=== PATIENT | male | born 1940 | race African-American/Black ===

== ENCOUNTER 2021-06-01 19:31 | Inpatient (IN) ==
[2021-06-01] MEDS ORDERED: ONDANSETRON 4 MG/2 ML VIAL IV ONE (20:21)
[2021-06-01] MEDS ORDERED: SODIUM CHLORIDE 0.9% 1,000 ML IV STA (20:21)
[2021-06-01 20:59] LABS: Basophils % 0.2 % (0.0-0.8); Eosinophils % 0.6 % (0.00-10.9); Hematocrit 31.3 VOL% (42.0-52.0); Immature Granulocytes % 0.4 %; Immature Granulocytes Absolute 0.02 #; Lymphocytes # 0.9 10*3/uL (1.4-4.0); Lymphocytes % 19.4 % (21.2-54.2); Mean Corpuscular HGB Conc 31.9 GM/DL (32-36); Mean Corpuscular Volume 81.9 FL (87-102); Mean Platelet Volume 11.9 FL (9.6-12.0); Neutrophils % 67.4 % (38.7-73.9); Platelet Count 206 T/CUMM (130-400); Red Blood Count 3.82 MC/CUMM (3.8-5.5); Red Cell Distribution Width 16.2 % (9.3-17.3); White Blood Count 4.8 T/CUMM (4-12)
[2021-06-01 21:21] LABS: Albumin 3.3 G/DL (3.4-5.0); Bilirubin,Total 0.9 MG/DL (0.20-1.00); Calcium 8.7 MG/DL (8.5-10.1); Osmolality,Calculated 272.5 MOS/KG (273-304); Potassium 4.4 MMOL/L (3.5-5.1)
[2021-06-01 22:09] LABS: Bacteria,Urine Occasional /HPF (Few); Bilirubin,Urine Negative (Negative); Blood, Urine Small mg/dL (Negative); Glucose,Urine (UA) Negative (Negative); Hyaline Casts,Urine 31 /LPF (0-3); Ketones,Urine Negative (Negative); Mucus,Urine Occasional /LPF (Occasional); Nitrite,Urine Negative (Negative); Protein,Urine Trace mg/dL (Negative); RBC,Urine 15-20 /HPF (0-4); Squamous Epithelial Cell,Urine Occasional /HPF (0-10); Urine Appearance Clear (Clear); Urine Color Yellow (Yellow); Urine Urobilinogen 0.2 eU/dL (<2.0)
[2021-06-01] MEDS ORDERED: PIPERACILLIN/TAZOBACTAM 3,375 MG in SODIUM CHLORIDE 0.9% 100 ML IV STA (22:28)
[2021-06-02] MEDS ORDERED: ACETAMINOPHEN 325 MG TABLET PO PRN (00:08)
[2021-06-02] MEDS ORDERED: HYDROmorphone 1 MG/1 ML SYRINGE IV PRN (00:08)
[2021-06-02] MEDS ORDERED: hydrALAZINE 20 MG/1 ML VIAL IV PRN (00:08)
[2021-06-02] MEDS ORDERED: GLUCAGON 1 MG VIAL IM PRN (00:08)
[2021-06-02] MEDS ORDERED: ONDANSETRON 4 MG/2 ML VIAL IV PRN (00:08)
[2021-06-02] MEDS ORDERED: DEXTROSE 10% 250 ML BAG IV PRN (00:22)
[2021-06-02 02:40] LABS: Hepatitis B Core IgM Quant 0.14 Index; Hepatitis B Surface Ag Quant < 0.10 Index; Hepatitis B Surface Ag Result Non-Reactive (NonReactive); Hepatitis C Virus Ab Quant 0.22 Index; Hepatitis C Virus Ab Result Non-Reactive (NonReactive)
[2021-06-02 06:00] LABS: Basophils % 0.2 % (0.0-0.8); Eosinophils % 0.2 % (0.00-10.9); Hematocrit 28.1 VOL% (42.0-52.0); Immature Granulocytes % 0.9 %; Immature Granulocytes Absolute 0.04 #; Lymphocytes # 0.8 10*3/uL (1.4-4.0); Lymphocytes % 17.2 % (21.2-54.2); Mean Platelet Volume 10.9 FL (9.6-12.0); Monocytes % 10.8 % (1.7-12.7); NRBC # 0.02 10*3/uL; Neutrophils % 70.7 % (38.7-73.9); Platelet Count 189 T/CUMM (130-400); Red Blood Count 3.47 MC/CUMM (3.8-5.5); White Blood Count 4.4 T/CUMM (4-12)
[2021-06-02 06:01] LABS: INR 1.4; PT Patient Result 14.8 SECS (10.5-12.0)
[2021-06-02] MEDS: PIPERACILLIN/TAZOBACTAM 3,375 MG in SODIUM CHLORIDE 0.9% 100 ML IV SCH ×3 (06:18→21:42)
[2021-06-02 06:22] LABS: Albumin 2.8 G/DL (3.4-5.0); Bilirubin,Total 1.7 MG/DL (0.20-1.00); Calcium 8.6 MG/DL (8.5-10.1); Osmolality,Calculated 275.4 MOS/KG (273-304); Potassium 4.5 MMOL/L (3.5-5.1); Risk Ratio 3.42; Thyroid Stimulating Hormone 4.4 uIU/ml (0.358-3.74); Total Protein 8.3 G/DL (6.4-8.2); VLDL Cholesterol 19.8 MG/DL
[2021-06-02] MEDS: PANTOPRAZOLE 40 MG VIAL IV SCH (09:56)
[2021-06-02] MEDS: FUROSEMIDE 40 MG/4 ML VIAL IV SCH (17:48)
[2021-06-02] MEDS: METOPROLOL TARTRATE 25 MG TABLET PO SCH (21:42)
[2021-06-02] MEDS: ENOXAPARIN 40 MG/0.4 ML SYRINGE SUBCUT SCH (22:01)
[2021-06-02] MEDS ORDERED: MELATONIN 3 MG TABLET PO PRN (22:29)
[2021-06-02] MEDS: ZALEPLON 5 MG CAPSULE PO PRN (23:52)
[2021-06-03] MEDS: PIPERACILLIN/TAZOBACTAM 3,375 MG in SODIUM CHLORIDE 0.9% 100 ML IV SCH ×3 (05:29→22:45)
[2021-06-03 07:57] LABS: Basophils % 0.4 % (0.0-0.8); Eosinophils % 0.2 % (0.00-10.9); Hematocrit 27.7 VOL% (42.0-52.0); Hemoglobin 8.9 GM/DL (14.0-18.0); Immature Granulocytes % 0.6 %; Immature Granulocytes Absolute 0.03 #; Lymphocytes # 0.6 10*3/uL (1.4-4.0); Lymphocytes % 12.4 % (21.2-54.2); Mean Corpuscular HGB Conc 32.1 GM/DL (32-36); Mean Corpuscular Volume 81.2 FL (87-102); Mean Platelet Volume 10.9 FL (9.6-12.0); Monocytes % 11.2 % (1.7-12.7); NRBC # 0.03 10*3/uL; Neutrophils % 75.2 % (38.7-73.9); Platelet Count 213 T/CUMM (130-400); Red Blood Count 3.41 MC/CUMM (3.8-5.5); Red Cell Distribution Width 16.5 % (9.3-17.3); White Blood Count 5.2 T/CUMM (4-12)
[2021-06-03 08:13] LABS: Bilirubin,Total 1.2 MG/DL (0.20-1.00); Calcium 8.8 MG/DL (8.5-10.1); Osmolality,Calculated 279.4 MOS/KG (273-304); Potassium 4.5 MMOL/L (3.5-5.1); Total Protein 8.4 G/DL (6.4-8.2)
[2021-06-03] MEDS: FUROSEMIDE 40 MG/4 ML VIAL IV SCH (08:36)
[2021-06-03] MEDS: PANTOPRAZOLE 40 MG VIAL IV SCH (08:39)
[2021-06-03] MEDS: METOPROLOL TARTRATE 25 MG TABLET PO SCH ×2 (08:40→22:41)
[2021-06-03] MEDS: POLYETHYLENE GLYCOL POWDER 17 GM PACK PO SCH (09:28)
[2021-06-03] MEDS: DOCUSATE SODIUM 100 MG CAPSULE PO SCH ×2 (09:29→22:41)
[2021-06-03] MEDS ORDERED: HALOPERIDOL 1 MG TABLET PO ONE (11:00)
[2021-06-03 17:29] LABS: Lymphocytes,Pleural Fluid 95 %; Neutrophils,Pleural Fluid 5 %
[2021-06-03 17:30] LABS: RBC,Pleural Fluid 11641 T/CUMM
[2021-06-03] MEDS: ZALEPLON 5 MG CAPSULE PO PRN (22:36)
[2021-06-03] MEDS: ENOXAPARIN 40 MG/0.4 ML SYRINGE SUBCUT SCH (22:41)
[2021-06-04] MEDS: PIPERACILLIN/TAZOBACTAM 3,375 MG in SODIUM CHLORIDE 0.9% 100 ML IV SCH (05:09)
[2021-06-04] MEDS ORDERED: FUROSEMIDE 40 MG/4 ML VIAL IV SCH (09:00)
[2021-06-04] MEDS: DOCUSATE SODIUM 100 MG CAPSULE PO SCH (10:13)
[2021-06-04] MEDS: POLYETHYLENE GLYCOL POWDER 17 GM PACK PO SCH (10:14)
[2021-06-04] MEDS: METOPROLOL TARTRATE 25 MG TABLET PO SCH (10:14)
[2021-06-04] MEDS: PANTOPRAZOLE 40 MG VIAL IV SCH (10:17)
[2021-06-04 12:03] VITALS: BP 101/62
[2021-06-04 15:02] LABS: CEA, Pleural Fluid 0.6 ng/mL
== END 2021-06-04 18:59 | disposition home health service (06) | DRG 432 ==
LOC: N.ED 19:31 → N.EDINP 06-02 00:08 → N.TELEN 06-02 03:32
PROVIDERS: ADMIT Hospitalist; ATTEND Hospitalist
PROC: IRTHORA (2021-06-03 14:35)

== ENCOUNTER 2021-07-21 13:23 | Inpatient (IN) ==
[2021-07-21] MEDS ORDERED: SODIUM CHLORIDE 0.9% 1,000 ML IV STA (14:10)
[2021-07-21 15:09] LABS: Albumin 2.7 G/DL (3.4-5.0); Bilirubin,Total 1.4 MG/DL (0.20-1.00); Calcium 9.3 MG/DL (8.5-10.1); Osmolality,Calculated 309.6 MOS/KG (273-304); Potassium 3.9 MMOL/L (3.5-5.1); Thyroid Stimulating Hormone 3.9 uIU/ml (0.358-3.74); Total Protein 8.5 G/DL (6.4-8.2)
[2021-07-21 15:21] LABS: Basophils % 0.2 % (0.0-0.8); Eosinophils % 0.7 % (0.00-10.9); Hematocrit 46.2 VOL% (42.0-52.0); Immature Granulocytes % 0.5 %; Immature Granulocytes Absolute 0.02 #; Lymphocytes # 0.8 10*3/uL (1.4-4.0); Lymphocytes % 20.5 % (21.2-54.2); Mean Corpuscular HGB Conc 30.3 GM/DL (32-36); Mean Corpuscular Volume 87.8 FL (87-102); Monocytes # 0.3 10*3/uL (0.11-0.8); Monocytes % 7.3 % (1.7-12.7); Neutrophils % 70.8 % (38.7-73.9); Platelet Count 149 T/CUMM (130-400); Red Blood Count 5.26 MC/CUMM (3.8-5.5); White Blood Count 4.1 T/CUMM (4-12)
[2021-07-21 15:43] LABS: PT Patient Result 51.8 SECS (10.5-12.0); Partial Thromboplastin Time 51.6 SECS (23.8-32.1)
[2021-07-21 15:45] LABS: INR 5.3
[2021-07-21] MEDS ORDERED: ONDANSETRON 4 MG/2 ML VIAL IV PRN (17:43)
[2021-07-21] MEDS ORDERED: GLUCAGON 1 MG VIAL IM PRN (17:43)
[2021-07-21] MEDS ORDERED: DEXTROSE 10% 250 ML BAG IV PRN (18:15)
[2021-07-21] MEDS ORDERED: POLYETHYLENE GLYCOL POWDER 17 GM PACK PO PRN (18:17)
[2021-07-21] MEDS ORDERED: CYPROHEPTADINE 4 MG TABLET PO PRN (18:17)
[2021-07-21] MEDS: DEXTROSE 5% 1,000 ML IV SCH (19:00)
[2021-07-22 03:53] LABS: Bacteria,Urine Occasional /HPF (Few); Mucus,Urine Occasional /LPF (Occasional); RBC,Urine 50 /HPF (0-4); Squamous Epithelial Cell,Urine Occasional /HPF (0-10)
[2021-07-22 03:54] LABS: Urine Appearance Slightly Hazy (Clear); Urine Color Yellow (Yellow); Urine pH 6.5 (4.5-8.0)
[2021-07-22 03:55] LABS: Bilirubin,Urine Negative (Negative); Blood, Urine Moderate mg/dL (Negative); Glucose,Urine (UA) Negative (Negative); Ketones,Urine Trace mg/dL (Negative); Nitrite,Urine Negative (Negative); Protein,Urine Trace mg/dL (Negative); Urine Specific Gravity 1.015 (1.001-1.035); Urine Urobilinogen 0.2 eU/dL (<2.0)
[2021-07-22 05:48] LABS: Immature Granulocytes % 0.3 %; Immature Granulocytes Absolute 0.01 #; Monocytes # 0.3 10*3/uL (0.11-0.8)
[2021-07-22 06:05] LABS: Albumin 2.5 G/DL (3.4-5.0); Bilirubin,Total 1.2 MG/DL (0.20-1.00); Osmolality,Calculated 307.9 MOS/KG (273-304); Risk Ratio 6.22; Total Protein 7.6 G/DL (6.4-8.2); VLDL Cholesterol 29.6 MG/DL
[2021-07-22 06:30] LABS: Basophils % 0.3 % (0.0-0.8); Eosinophils % 1.1 % (0.00-10.9); Hematocrit 48.4 VOL% (42.0-52.0); Lymphocytes # 0.9 10*3/uL (1.4-4.0); Lymphocytes % 23.3 % (21.2-54.2); Mean Corpuscular Volume 88.6 FL (87-102); Monocytes % 7.2 % (1.7-12.7); Neutrophils % 67.8 % (38.7-73.9); Platelet Count 150 T/CUMM (130-400); Red Blood Count 5.46 MC/CUMM (3.8-5.5); Red Cell Distribution Width 21.4 % (9.3-17.3); White Blood Count 3.7 T/CUMM (4-12)
[2021-07-22 06:32] LABS: Hemoglobin 14.5 GM/DL (14.0-18.0)
[2021-07-22 06:37] LABS: INR 4.6
[2021-07-22] MEDS: DEXTROSE 5% 1,000 ML IV SCH ×3 (08:28→21:25)
[2021-07-22] MEDS: cefTRIAXone 1,000 MG in SODIUM CHLORIDE 0.9% 100 ML IV SCH (08:44)
[2021-07-22] MEDS: PANTOPRAZOLE 40 MG VIAL IV SCH (08:49)
[2021-07-22] MEDS: TAMSULOSIN 0.4 MG CAPSULE PO SCH (08:49)
[2021-07-22] MEDS: MENTHOL/ZINC OXIDE OINT 71 GM JAR TOP SCH ×2 (15:26→21:20)
[2021-07-23 05:49] LABS: Basophils % 0.3 % (0.0-0.8); Eosinophils # 0.1 10*3/uL (0.0-0.87); Eosinophils % 1.9 % (0.00-10.9); Hematocrit 44.2 VOL% (42.0-52.0); Hemoglobin 13.4 GM/DL (14.0-18.0); Immature Granulocytes % 0.3 %; Immature Granulocytes Absolute 0.01 #; Lymphocytes # 0.8 10*3/uL (1.4-4.0); Lymphocytes % 24.4 % (21.2-54.2); Mean Corpuscular HGB Conc 30.3 GM/DL (32-36); Mean Corpuscular Volume 87.2 FL (87-102); Monocytes # 0.2 10*3/uL (0.11-0.8); Monocytes % 7.1 % (1.7-12.7); Platelet Count 146 T/CUMM (130-400); Red Blood Count 5.07 MC/CUMM (3.8-5.5); Red Cell Distribution Width 20.6 % (9.3-17.3); White Blood Count 3.1 T/CUMM (4-12)
[2021-07-23] MEDS: DEXTROSE 5% 1,000 ML IV SCH ×3 (06:00→23:00)
[2021-07-23 06:06] LABS: Albumin 2.3 G/DL (3.4-5.0); Bilirubin,Total 1.3 MG/DL (0.20-1.00); Calcium 8.7 MG/DL (8.5-10.1); Osmolality,Calculated 304.3 MOS/KG (273-304); Potassium 3.6 MMOL/L (3.5-5.1); Total Protein 7.2 G/DL (6.4-8.2)
[2021-07-23 06:09] LABS: PT Patient Result 40.3 SECS (10.5-12.0)
[2021-07-23] MEDS: cefTRIAXone 1,000 MG in SODIUM CHLORIDE 0.9% 100 ML IV SCH (08:52)
[2021-07-23] MEDS: PANTOPRAZOLE 40 MG VIAL IV SCH (08:53)
[2021-07-23] MEDS: MENTHOL/ZINC OXIDE OINT 71 GM JAR TOP SCH ×2 (08:59→21:02)
[2021-07-23] MEDS: TAMSULOSIN 0.4 MG CAPSULE PO SCH (09:07)
[2021-07-23] MEDS: BACITRACIN OINT 0.9 GM PACK TOP SCH (13:11)
[2021-07-24] MEDS: DEXTROSE 5% 1,000 ML IV SCH ×3 (03:10→16:47)
[2021-07-24 05:33] LABS: Basophils % 0.3 % (0.0-0.8); Eosinophils # 0.1 10*3/uL (0.0-0.87); Eosinophils % 2.5 % (0.00-10.9); Hematocrit 39.7 VOL% (42.0-52.0); Immature Granulocytes % 0.3 %; Immature Granulocytes Absolute 0.01 #; Lymphocytes # 1.1 10*3/uL (1.4-4.0); Lymphocytes % 32.8 % (21.2-54.2); Mean Corpuscular HGB Conc 30.2 GM/DL (32-36); Mean Corpuscular Volume 85.6 FL (87-102); Monocytes # 0.2 10*3/uL (0.11-0.8); Monocytes % 7.5 % (1.7-12.7); Neutrophils % 56.6 % (38.7-73.9); Platelet Count 139 T/CUMM (130-400); Red Blood Count 4.64 MC/CUMM (3.8-5.5); Red Cell Distribution Width 19.3 % (9.3-17.3); White Blood Count 3.2 T/CUMM (4-12)
[2021-07-24 05:42] LABS: INR 2.9; PT Patient Result 29.9 SECS (10.5-12.0)
[2021-07-24 05:50] LABS: Bilirubin,Total 1.1 MG/DL (0.20-1.00); Calcium 8.3 MG/DL (8.5-10.1); Osmolality,Calculated 282.5 MOS/KG (273-304); Potassium 3.4 MMOL/L (3.5-5.1); Total Protein 6.5 G/DL (6.4-8.2)
[2021-07-24] MEDS ORDERED: POTASSIUM CHLORIDE 20 MEQ TABLET PO ONE (08:00)
[2021-07-24] MEDS: cefTRIAXone 1,000 MG in SODIUM CHLORIDE 0.9% 100 ML IV SCH (08:49)
[2021-07-24] MEDS: TAMSULOSIN 0.4 MG CAPSULE PO SCH (08:50)
[2021-07-24] MEDS: PANTOPRAZOLE 40 MG VIAL IV SCH (08:50)
[2021-07-24] MEDS: BACITRACIN OINT 0.9 GM PACK TOP SCH (08:50)
[2021-07-24] MEDS: MENTHOL/ZINC OXIDE OINT 71 GM JAR TOP SCH ×2 (09:07→21:57)
[2021-07-24] MEDS: ACETAMINOPHEN 325 MG TABLET PO PRN (09:07)
[2021-07-24] MEDS: AZITHROMYCIN INJ 500 MG in SODIUM CHLORIDE 0.9% 250 ML IV SCH (10:17)
[2021-07-25] MEDS: DEXTROSE 5% 1,000 ML IV SCH ×3 (01:27→11:51)
[2021-07-25] MEDS: cefTRIAXone 1,000 MG in SODIUM CHLORIDE 0.9% 100 ML IV SCH (07:48)
[2021-07-25] MEDS: TAMSULOSIN 0.4 MG CAPSULE PO SCH (08:08)
[2021-07-25 08:28] LABS: Basophils % 0.4 % (0.0-0.8); Eosinophils # 0.1 10*3/uL (0.0-0.87); Eosinophils % 3.9 % (0.00-10.9); Hematocrit 38.8 VOL% (42.0-52.0); Hemoglobin 12.2 GM/DL (14.0-18.0); Immature Granulocytes % 0.4 %; Immature Granulocytes Absolute 0.01 #; Lymphocytes % 35.1 % (21.2-54.2); Mean Corpuscular HGB Conc 31.4 GM/DL (32-36); Monocytes # 0.3 10*3/uL (0.11-0.8); Neutrophils % 51.2 % (38.7-73.9); Platelet Count 124 T/CUMM (130-400); Red Blood Count 4.62 MC/CUMM (3.8-5.5); Red Cell Distribution Width 18.6 % (9.3-17.3); White Blood Count 2.8 T/CUMM (4-12)
[2021-07-25 08:36] LABS: INR 2.1; PT Patient Result 21.6 SECS (10.5-12.0)
[2021-07-25 08:42] LABS: Calcium 8.3 MG/DL (8.5-10.1); Osmolality,Calculated 271.4 MOS/KG (273-304); Potassium 3.7 MMOL/L (3.5-5.1)
[2021-07-25 09:02] LABS: PT Patient Result 28.8 SECS (10.5-12.0)
[2021-07-25] MEDS: PANTOPRAZOLE 40 MG VIAL IV SCH (09:13)
[2021-07-25] MEDS: BACITRACIN OINT 0.9 GM PACK TOP SCH (09:13)
[2021-07-25] MEDS: AZITHROMYCIN INJ 500 MG in SODIUM CHLORIDE 0.9% 250 ML IV SCH (09:13)
[2021-07-25] MEDS: MENTHOL/ZINC OXIDE OINT 71 GM JAR TOP SCH ×2 (09:13→21:04)
[2021-07-25 09:17] LABS: Albumin 2.5 G/DL (3.4-5.0); Bilirubin,Total 1.2 MG/DL (0.20-1.00); Calcium 8.8 MG/DL (8.5-10.1); Osmolality,Calculated 264.8 MOS/KG (273-304); Potassium 4.9 MMOL/L (3.5-5.1); Total Protein 8.2 G/DL (6.4-8.2)
[2021-07-25 10:07] LABS: Basophils % 0.3 % (0.0-0.8); Eosinophils # 0.1 10*3/uL (0.0-0.87); Eosinophils % 3.5 % (0.00-10.9); Hematocrit 38.4 VOL% (42.0-52.0); Hemoglobin 12.1 GM/DL (14.0-18.0); Immature Granulocytes % 0.3 %; Immature Granulocytes Absolute 0.01 #; Lymphocytes # 1.1 10*3/uL (1.4-4.0); Lymphocytes % 35.5 % (21.2-54.2); Mean Corpuscular HGB Conc 31.5 GM/DL (32-36); Mean Corpuscular Volume 82.9 FL (87-102); Monocytes # 0.3 10*3/uL (0.11-0.8); Neutrophils % 49.4 % (38.7-73.9); Platelet Count 134 T/CUMM (130-400); Red Blood Count 4.63 MC/CUMM (3.8-5.5); Red Cell Distribution Width 18.9 % (9.3-17.3); White Blood Count 3.1 T/CUMM (4-12)
[2021-07-25 10:42] LABS: INR 2.8
[2021-07-25] MEDS: MEROPENEM 500 MG in SODIUM CHLORIDE 0.9% 100 ML IV SCH ×2 (11:51→17:45)
[2021-07-26] MEDS: MEROPENEM 500 MG in SODIUM CHLORIDE 0.9% 100 ML IV SCH ×5 (00:45→23:16)
[2021-07-26] MEDS: DEXTROSE 5% 1,000 ML IV SCH (00:52)
[2021-07-26 06:51] LABS: Basophils % 0.3 % (0.0-0.8); Eosinophils # 0.1 10*3/uL (0.0-0.87); Eosinophils % 2.6 % (0.00-10.9); Hematocrit 38.5 VOL% (42.0-52.0); Hemoglobin 11.9 GM/DL (14.0-18.0); Immature Granulocytes % 0.6 %; Immature Granulocytes Absolute 0.02 #; Lymphocytes % 32.4 % (21.2-54.2); Mean Corpuscular HGB Conc 30.9 GM/DL (32-36); Monocytes # 0.3 10*3/uL (0.11-0.8); Neutrophils % 56.1 % (38.7-73.9); Platelet Count 141 T/CUMM (130-400); Red Blood Count 4.53 MC/CUMM (3.8-5.5); Red Cell Distribution Width 18.8 % (9.3-17.3); White Blood Count 3.1 T/CUMM (4-12)
[2021-07-26 06:55] LABS: INR 1.9; PT Patient Result 19.8 SECS (10.5-12.0)
[2021-07-26 07:11] LABS: Calcium 8.3 MG/DL (8.5-10.1); Osmolality,Calculated 265.9 MOS/KG (273-304); Potassium 4.1 MMOL/L (3.5-5.1)
[2021-07-26 07:40] LABS: Anisocytosis 1+; Macrocytosis 1+; Platelet Estimate Adequate
[2021-07-26] MEDS: MENTHOL/ZINC OXIDE OINT 71 GM JAR TOP SCH ×2 (09:15→21:43)
[2021-07-26] MEDS: PANTOPRAZOLE 40 MG VIAL IV SCH (09:15)
[2021-07-26] MEDS: BACITRACIN OINT 0.9 GM PACK TOP SCH (09:15)
[2021-07-26] MEDS: TAMSULOSIN 0.4 MG CAPSULE PO SCH (09:15)
[2021-07-26] MEDS: SODIUM CHLORIDE 0.9% 1,000 ML IV SCH (12:42)
[2021-07-27] MEDS: SODIUM CHLORIDE 0.9% 1,000 ML IV SCH ×3 (02:13→15:45)
[2021-07-27] MEDS: MEROPENEM 500 MG in SODIUM CHLORIDE 0.9% 100 ML IV SCH ×4 (05:08→23:29)
[2021-07-27 06:19] LABS: INR 1.7; PT Patient Result 18.3 SECS (10.5-12.0)
[2021-07-27 06:37] LABS: Calcium 8.6 MG/DL (8.5-10.1); Osmolality,Calculated 263.8 MOS/KG (273-304)
[2021-07-27 06:39] LABS: Basophils % 0.3 % (0.0-0.8); Hemoglobin 11.1 GM/DL (14.0-18.0); Immature Granulocytes % 0.7 %; Immature Granulocytes Absolute 0.02 #; Lymphocytes # 0.8 10*3/uL (1.4-4.0); Lymphocytes % 26.6 % (21.2-54.2); Mean Corpuscular HGB Conc 32.6 GM/DL (32-36); Mean Corpuscular Volume 81.7 FL (87-102); Monocytes # 0.3 10*3/uL (0.11-0.8); Monocytes % 8.2 % (1.7-12.7); Neutrophils % 63.2 % (38.7-73.9); Platelet Count 134 T/CUMM (130-400); Red Blood Count 4.16 MC/CUMM (3.8-5.5); Red Cell Distribution Width 18.3 % (9.3-17.3); White Blood Count 3.1 T/CUMM (4-12)
[2021-07-27 06:44] LABS: Platelet Estimate Adequate
[2021-07-27 06:45] LABS: Anisocytosis 2+; Burr Cells Few; Poikilocytosis Slight; Target Cells Few
[2021-07-27 07:13] LABS: Macrocytosis 1+; Tear Drop Cells Few
[2021-07-27] MEDS: MENTHOL/ZINC OXIDE OINT 71 GM JAR TOP SCH ×2 (09:14→20:58)
[2021-07-27] MEDS: PANTOPRAZOLE 40 MG VIAL IV SCH (09:14)
[2021-07-27] MEDS: TAMSULOSIN 0.4 MG CAPSULE PO SCH (09:14)
[2021-07-27] MEDS: BACITRACIN OINT 0.9 GM PACK TOP SCH (10:24)
[2021-07-28] MEDS: SODIUM CHLORIDE 0.9% 1,000 ML IV SCH ×2 (05:29→21:21)
[2021-07-28] MEDS: MEROPENEM 500 MG in SODIUM CHLORIDE 0.9% 100 ML IV SCH ×2 (05:29→16:24)
[2021-07-28 05:37] LABS: INR 1.7; PT Patient Result 18.3 SECS (10.5-12.0)
[2021-07-28 06:05] LABS: Phosphorous 2.5 MG/DL (2.5-4.9)
[2021-07-28 06:10] LABS: Basophils % 0.3 % (0.0-0.8); Eosinophils % 0.3 % (0.00-10.9); Hematocrit 33.3 VOL% (42.0-52.0); Immature Granulocytes % 0.5 %; Immature Granulocytes Absolute 0.02 #; Lymphocytes # 0.6 10*3/uL (1.4-4.0); Lymphocytes % 15.6 % (21.2-54.2); Mean Corpuscular Volume 80.8 FL (87-102); Monocytes # 0.3 10*3/uL (0.11-0.8); Monocytes % 8.4 % (1.7-12.7); Neutrophils % 74.9 % (38.7-73.9); Platelet Count 134 T/CUMM (130-400); Red Blood Count 4.12 MC/CUMM (3.8-5.5); Red Cell Distribution Width 18.4 % (9.3-17.3); White Blood Count 3.7 T/CUMM (4-12)
[2021-07-28 06:17] LABS: Hypochromia Slight
[2021-07-28 06:18] LABS: Microcytosis 1+; Platelet Estimate Adequate; Target Cells Slight
[2021-07-28 06:59] LABS: Calcium 8.6 MG/DL (8.5-10.1); Osmolality,Calculated 269.5 MOS/KG (273-304); Potassium 4.3 MMOL/L (3.5-5.1)
[2021-07-28] MEDS: BACITRACIN OINT 0.9 GM PACK TOP SCH (15:24)
[2021-07-28] MEDS: MENTHOL/ZINC OXIDE OINT 71 GM JAR TOP SCH ×2 (15:27→21:22)
[2021-07-28] MEDS ORDERED: SODIUM BICARB INJ 50 MEQ in DEXTROSE 5% 1,000 ML IV SCH (15:30)
[2021-07-28] MEDS: CEFEPIME 1,000 MG in SODIUM CHLORIDE 0.9% 100 ML IV SCH ×2 (17:31→23:55)
[2021-07-28] MEDS: TAMSULOSIN 0.4 MG CAPSULE PO SCH (18:12)
[2021-07-28] MEDS: PANTOPRAZOLE 40 MG VIAL IV SCH (18:13)
[2021-07-29 06:08] LABS: Basophils % 0.3 % (0.0-0.8); Eosinophils % 0.3 % (0.00-10.9); Hematocrit 35.1 VOL% (42.0-52.0); Hemoglobin 11.3 GM/DL (14.0-18.0); Immature Granulocytes % 0.5 %; Immature Granulocytes Absolute 0.02 #; Lymphocytes # 0.9 10*3/uL (1.4-4.0); Lymphocytes % 24.4 % (21.2-54.2); Mean Corpuscular HGB Conc 32.2 GM/DL (32-36); Mean Corpuscular Volume 82.4 FL (87-102); Monocytes # 0.4 10*3/uL (0.11-0.8); Monocytes % 9.6 % (1.7-12.7); Neutrophils % 64.9 % (38.7-73.9); Platelet Count 130 T/CUMM (130-400); Red Blood Count 4.26 MC/CUMM (3.8-5.5); Red Cell Distribution Width 18.6 % (9.3-17.3); White Blood Count 3.9 T/CUMM (4-12)
[2021-07-29 06:59] LABS: INR 1.8
[2021-07-29 07:15] LABS: Calcium 8.8 MG/DL (8.5-10.1); Osmolality,Calculated 271.7 MOS/KG (273-304); Potassium 4.4 MMOL/L (3.5-5.1)
[2021-07-29] MEDS: MENTHOL/ZINC OXIDE OINT 71 GM JAR TOP SCH ×2 (08:15→22:30)
[2021-07-29] MEDS: BACITRACIN OINT 0.9 GM PACK TOP SCH (08:15)
[2021-07-29] MEDS: LACTATED RINGERS 1,000 ML IV SCH (08:43)
[2021-07-29] MEDS: CEFEPIME 1,000 MG in SODIUM CHLORIDE 0.9% 100 ML IV SCH ×3 (08:45→23:18)
[2021-07-29] MEDS ORDERED: propofoL 200 MG/20 ML VIAL IV ONE (08:49)
[2021-07-29] MEDS ORDERED: PHENYLEPHRINE 1 MG/10 ML SYRINGE IV ONE ×2 (08:49→08:56)
[2021-07-29] MEDS ORDERED: LIDOCAINE 2% 5 ML VIAL ONE (08:49)
[2021-07-29] MEDS: PANTOPRAZOLE 40 MG VIAL IV SCH (09:46)
[2021-07-29] MEDS: TAMSULOSIN 0.4 MG CAPSULE PO SCH (09:46)
[2021-07-29] MEDS: SODIUM CHLORIDE 0.9% 1,000 ML IV SCH ×2 (13:10→22:30)
[2021-07-29] MEDS: ACETAMINOPHEN 325 MG TABLET PO PRN (21:09)
[2021-07-30 05:12] LABS: Basophils % 0.2 % (0.0-0.8); Eosinophils % 0.5 % (0.00-10.9); Hematocrit 32.8 VOL% (42.0-52.0); Hemoglobin 10.6 GM/DL (14.0-18.0); Immature Granulocytes % 0.5 %; Immature Granulocytes Absolute 0.02 #; Lymphocytes # 0.9 10*3/uL (1.4-4.0); Lymphocytes % 20.8 % (21.2-54.2); Mean Corpuscular HGB Conc 32.3 GM/DL (32-36); Monocytes # 0.6 10*3/uL (0.11-0.8); Monocytes % 13.3 % (1.7-12.7); NRBC # 0.03 10*3/uL; Neutrophils % 64.7 % (38.7-73.9); Platelet Count 129 T/CUMM (130-400); White Blood Count 4.1 T/CUMM (4-12)
[2021-07-30 05:22] LABS: INR 1.8; PT Patient Result 19.3 SECS (10.5-12.0)
[2021-07-30 05:27] LABS: Calcium 8.9 MG/DL (8.5-10.1); Osmolality,Calculated 269.8 MOS/KG (273-304); Phosphorous 2.9 MG/DL (2.5-4.9); Potassium 5.3 MMOL/L (3.5-5.1)
[2021-07-30] MEDS ORDERED: SODIUM POLYSTYRENE SULFATE 15 GM/60 ML BOTTLE PEG STA (08:00)
[2021-07-30] MEDS: CEFEPIME 1,000 MG in SODIUM CHLORIDE 0.9% 100 ML IV SCH ×2 (08:42→16:00)
[2021-07-30] MEDS: PANTOPRAZOLE 40 MG VIAL IV SCH (08:42)
[2021-07-30] MEDS: TAMSULOSIN 0.4 MG CAPSULE PO SCH (08:43)
[2021-07-30] MEDS: BACITRACIN OINT 0.9 GM PACK TOP SCH (08:43)
[2021-07-30] MEDS: MENTHOL/ZINC OXIDE OINT 71 GM JAR TOP SCH ×2 (08:43→21:35)
[2021-07-30] MEDS ORDERED: hydrOXYzine HCL 25 MG TABLET PER TUBE ONE (18:30)
[2021-07-30] MEDS: SODIUM CHLORIDE 0.9% 1,000 ML IV SCH (21:35)
[2021-07-30] MEDS: LACTATED RINGERS 1,000 ML IV SCH (21:43)
[2021-07-31] MEDS: CEFEPIME 1,000 MG in SODIUM CHLORIDE 0.9% 100 ML IV SCH ×5 (00:18→23:57)
[2021-07-31] MEDS: INSULIN REGULAR 100 UNIT/ML SUBCUT SCH ×5 (00:18→23:55)
[2021-07-31] MEDS: SODIUM CHLORIDE 0.9% 1,000 ML IV SCH ×2 (00:54→11:30)
[2021-07-31 06:34] LABS: Calcium 8.2 MG/DL (8.5-10.1); Osmolality,Calculated 276.4 MOS/KG (273-304); Phosphorous 2.8 MG/DL (2.5-4.9); Potassium 4.5 MMOL/L (3.5-5.1)
[2021-07-31 08:51] LABS: Basophils % 0.2 % (0.0-0.8); Eosinophils % 0.2 % (0.00-10.9); Hematocrit 35.4 VOL% (42.0-52.0); Hemoglobin 11.3 GM/DL (14.0-18.0); Immature Granulocytes % 0.7 %; Immature Granulocytes Absolute 0.04 #; Lymphocytes # 0.8 10*3/uL (1.4-4.0); Lymphocytes % 14.3 % (21.2-54.2); Mean Corpuscular HGB Conc 31.9 GM/DL (32-36); Mean Corpuscular Volume 83.3 FL (87-102); Monocytes # 0.9 10*3/uL (0.11-0.8); Monocytes % 16.5 % (1.7-12.7); NRBC # 0.08 10*3/uL; Neutrophils % 68.1 % (38.7-73.9); Platelet Count 137 T/CUMM (130-400); Red Blood Count 4.25 MC/CUMM (3.8-5.5); Red Cell Distribution Width 18.6 % (9.3-17.3); White Blood Count 5.5 T/CUMM (4-12)
[2021-07-31] MEDS: TAMSULOSIN 0.4 MG CAPSULE PO SCH (09:06)
[2021-07-31] MEDS: PANTOPRAZOLE 40 MG VIAL IV SCH (09:06)
[2021-07-31] MEDS: BACITRACIN OINT 0.9 GM PACK TOP SCH (09:07)
[2021-07-31] MEDS: MENTHOL/ZINC OXIDE OINT 71 GM JAR TOP SCH ×2 (09:07→20:02)
[2021-07-31 09:38] LABS: Lymphocytes 14 % (20-55); Nucleated Red Blood Cells 6 (0-5); Total Cells Counted 100
[2021-07-31 09:39] LABS: Platelet Estimate Adequate
[2021-07-31] MEDS ORDERED: FUROSEMIDE 40 MG/4 ML VIAL IV ONE (09:50)
[2021-07-31] MEDS ORDERED: SODIUM BICARBONATE 50 MEQ/50 ML VIAL IV ONE (10:16)
[2021-07-31] MEDS ORDERED: ETOMIDATE 20 MG/10 ML VIAL IV ONE ×2 (10:22→10:39)
[2021-07-31 10:23] LABS: High Sensitive Troponin I* 102.3 ng/L (0-78)
[2021-07-31] MEDS ORDERED: ROCURONIUM 100 MG/10 ML VIAL IV ONE ×2 (10:23→10:40)
[2021-07-31 10:27] LABS: Arterial Base Excess iSTAT -6 MMOL/L (-2.5-2.5); Arterial Bicarbonate iSTAT 20.8 MMOL/L (20-26); Arterial O2 Saturation iSTAT 25 % (95-100); Arterial PCO2 iSTAT 44 MM HG (35-48); Arterial PO2 iSTAT 20 MM HG (80-95); Arterial Total CO2 iSTAT 22 MMO/L (23-27); Arterial pH iSTAT 7.282 (7.35-7.45)
[2021-07-31] MEDS: LACTATED RINGERS 1,000 ML IV SCH (10:35)
[2021-07-31] MEDS ORDERED: SODIUM CHLORIDE 0.9% 500 ML IV ONE ×2 (10:38→20:00)
[2021-07-31] MEDS: MIDAZOLAM 100 MG in SODIUM CHLORIDE 0.9% 80 ML IV PRN (10:48)
[2021-07-31 11:17] LABS: Arterial Base Excess iSTAT -2 MMOL/L (-2.5-2.5); Arterial O2 Saturation iSTAT 100 % (95-100); Arterial PCO2 iSTAT 33 MM HG (35-48); Arterial PO2 iSTAT 523 MM HG (80-95); Arterial Total CO2 iSTAT 23 MMO/L (23-27); Arterial pH iSTAT 7.429 (7.35-7.45)
[2021-07-31 11:36] LABS: Alanine Aminotransferase 28 U/L (16-61); Albumin 2.2 G/DL (3.4-5.0); Alkaline Phosphatase 137 U/L (45-117); Aspartate Amino Transferase 29 U/L (0-37); Blood Urea Nitrogen 39 MG/DL (7-18); Calcium 8.1 MG/DL (8.5-10.1); Carbon Dioxide 22 MMOL/L (21-32); Chloride 106 MMOL/L (98-107); Glucose 152 MG/DL (74-106); Potassium 3.9 MMOL/L (3.5-5.1); Sodium 136 MMOL/L (136-145); Total Protein 6.5 G/DL (6.4-8.2)
[2021-07-31] MEDS ORDERED: DOPamine 800 MG/250 ML PREMIX IV ONE (12:26)
[2021-07-31] MEDS: DOPamine 800 MG/250 ML PREMIX IV PRN (12:34)
[2021-07-31] MEDS ORDERED: NOREPINEPHRINE 8 MG in SODIUM CHLORIDE 0.9% 242 ML IV PRN (19:27)
[2021-07-31 19:44] LABS: Basophils % 0.2 % (0.0-0.8); Eosinophils % 0.4 % (0.00-10.9); Hematocrit 31.8 VOL% (42.0-52.0); Hemoglobin 10.5 GM/DL (14.0-18.0); Immature Granulocytes % 0.4 %; Immature Granulocytes Absolute 0.02 #; Lymphocytes # 0.7 10*3/uL (1.4-4.0); Lymphocytes % 13.7 % (21.2-54.2); Mean Corpuscular Volume 81.1 FL (87-102); Monocytes # 0.5 10*3/uL (0.11-0.8); Monocytes % 10.3 % (1.7-12.7); NRBC # 0.02 10*3/uL; Platelet Count 113 T/CUMM (130-400); Red Blood Count 3.92 MC/CUMM (3.8-5.5); White Blood Count 4.8 T/CUMM (4-12)
[2021-08-01] MEDS: SODIUM CHLORIDE 0.9% 1,000 ML IV SCH ×2 (03:13→18:12)
[2021-08-01 03:39] LABS: Basophils % 0.2 % (0.0-0.8); Eosinophils # 0.1 10*3/uL (0.0-0.87); Eosinophils % 1.1 % (0.00-10.9); Hematocrit 34.4 VOL% (42.0-52.0); Hemoglobin 11.2 GM/DL (14.0-18.0); Immature Granulocytes % 0.4 %; Immature Granulocytes Absolute 0.02 #; Lymphocytes # 0.4 10*3/uL (1.4-4.0); Lymphocytes % 9.2 % (21.2-54.2); Mean Corpuscular HGB Conc 32.6 GM/DL (32-36); Mean Corpuscular Volume 82.1 FL (87-102); Monocytes # 0.4 10*3/uL (0.11-0.8); Monocytes % 8.8 % (1.7-12.7); NRBC # 0.03 10*3/uL; Neutrophils % 80.3 % (38.7-73.9); Platelet Count 127 T/CUMM (130-400); Red Blood Count 4.19 MC/CUMM (3.8-5.5); Red Cell Distribution Width 18.3 % (9.3-17.3); White Blood Count 4.6 T/CUMM (4-12)
[2021-08-01 03:58] LABS: Eosinophils 2 % (0-10); Lymphocytes 5 % (20-55); Nucleated Red Blood Cells 1 (0-5); Total Cells Counted 100
[2021-08-01 04:07] LABS: Albumin 2.1 G/DL (3.4-5.0); Bilirubin,Total 1.4 MG/DL (0.20-1.00); Calcium 8.4 MG/DL (8.5-10.1); Potassium 3.7 MMOL/L (3.5-5.1); Total Protein 6.7 G/DL (6.4-8.2)
[2021-08-01] MEDS: INSULIN REGULAR 100 UNIT/ML SUBCUT SCH ×4 (05:24→23:12)
[2021-08-01] MEDS: TAMSULOSIN 0.4 MG CAPSULE PO SCH (08:16)
[2021-08-01] MEDS: BACITRACIN OINT 0.9 GM PACK TOP SCH (08:16)
[2021-08-01] MEDS: PANTOPRAZOLE 40 MG VIAL IV SCH (08:16)
[2021-08-01] MEDS: MENTHOL/ZINC OXIDE OINT 71 GM JAR TOP SCH ×2 (08:17→20:14)
[2021-08-01] MEDS: CEFEPIME 1,000 MG in SODIUM CHLORIDE 0.9% 100 ML IV SCH ×3 (08:17→23:12)
[2021-08-01] MEDS: LACTATED RINGERS 1,000 ML IV SCH (08:17)
[2021-08-01] MEDS ORDERED: FUROSEMIDE 40 MG/4 ML VIAL IV ONE (10:00)
[2021-08-01 10:42] LABS: Arterial Base Excess iSTAT -4 MMOL/L (-2.5-2.5); Arterial Bicarbonate iSTAT 20.6 MMOL/L (20-26); Arterial O2 Saturation iSTAT 100 % (95-100); Arterial PCO2 iSTAT 37 MM HG (35-48); Arterial PO2 iSTAT 184 MM HG (80-95); Arterial Total CO2 iSTAT 22 MMO/L (23-27); Arterial pH iSTAT 7.354 (7.35-7.45)
[2021-08-01] MEDS: METOCLOPRAMIDE 10 MG/2 ML VIAL IV SCH ×4 (10:47→23:12)
[2021-08-01] MEDS: ENOXAPARIN 30 MG/0.3 ML SYRINGE SUBCUT SCH (17:03)
[2021-08-01] MEDS: methylPREDNISolone SOD SUC 40 MG/1 ML VIAL IV SCH (17:03)
[2021-08-01] MEDS: LEVOFLOXACIN INJ 750 MG/150 ML PREMIX IV SCH (17:03)
[2021-08-02] MEDS: methylPREDNISolone SOD SUC 40 MG/1 ML VIAL IV SCH ×2 (02:44→15:41)
[2021-08-02 03:31] LABS: Hematocrit 33.4 VOL% (42.0-52.0); Hemoglobin 10.9 GM/DL (14.0-18.0); Immature Granulocytes % 0.4 %; Immature Granulocytes Absolute 0.02 #; Lymphocytes # 0.2 10*3/uL (1.4-4.0); Lymphocytes % 3.8 % (21.2-54.2); Mean Corpuscular HGB Conc 32.6 GM/DL (32-36); Mean Corpuscular Volume 82.9 FL (87-102); Monocytes # 0.1 10*3/uL (0.11-0.8); Monocytes % 2.1 % (1.7-12.7); NRBC # 0.03 10*3/uL; Neutrophils % 93.7 % (38.7-73.9); Platelet Count 127 T/CUMM (130-400); Red Blood Count 4.03 MC/CUMM (3.8-5.5); Red Cell Distribution Width 18.5 % (9.3-17.3); White Blood Count 4.8 T/CUMM (4-12)
[2021-08-02 03:47] LABS: Albumin 1.9 G/DL (3.4-5.0); Bilirubin,Total 1.1 MG/DL (0.20-1.00); Calcium 8.5 MG/DL (8.5-10.1); Osmolality,Calculated 286.7 MOS/KG (273-304); Total Protein 6.6 G/DL (6.4-8.2)
[2021-08-02 04:23] LABS: ABG Base Excess -0.9 MMOL/L (-2.5-2.5); ABG HCO3 23.7 MMOL/L (20-26); ABG PCO2 30.9 MM HG (35-48); ABG PH 7.463 (7.35-7.45); ABG TCO2 19.7 MMOL/L (23-27)
[2021-08-02 04:37] LABS: Lymphocytes 5 % (20-55); Platelet Estimate Normal; Total Cells Counted 100
[2021-08-02] MEDS: METOCLOPRAMIDE 10 MG/2 ML VIAL IV SCH ×4 (06:19→23:47)
[2021-08-02] MEDS: INSULIN REGULAR 100 UNIT/ML SUBCUT SCH ×4 (06:19→23:46)
[2021-08-02] MEDS: DOPamine 800 MG/250 ML PREMIX IV PRN (07:05)
[2021-08-02] MEDS: MENTHOL/ZINC OXIDE OINT 71 GM JAR TOP SCH ×2 (08:43→20:21)
[2021-08-02] MEDS: PANTOPRAZOLE 40 MG VIAL IV SCH (08:43)
[2021-08-02] MEDS: BACITRACIN OINT 0.9 GM PACK TOP SCH (08:43)
[2021-08-02] MEDS: CEFEPIME 1,000 MG in SODIUM CHLORIDE 0.9% 100 ML IV SCH ×3 (08:43→23:47)
[2021-08-02] MEDS: TAMSULOSIN 0.4 MG CAPSULE PO SCH (08:47)
[2021-08-02] MEDS: SODIUM CHLORIDE 0.9% 1,000 ML IV SCH ×2 (08:52→13:43)
[2021-08-02] MEDS ORDERED: ALBUMIN 25% 50 GM/200 ML VIAL IV ONE (10:30)
[2021-08-02] MEDS ORDERED: FUROSEMIDE 40 MG/4 ML VIAL IV ONE (10:30)
[2021-08-02] MEDS: ALBUMIN 25% 25 GM/100 ML VIAL IV SCH ×2 (10:58→12:10)
[2021-08-02] MEDS ORDERED: ALBUMIN 25% 25 GM/100 ML VIAL IV SCH (11:00)
[2021-08-02] MEDS: LEVOFLOXACIN INJ 750 MG/150 ML PREMIX IV SCH (15:41)
[2021-08-02] MEDS: ENOXAPARIN 30 MG/0.3 ML SYRINGE SUBCUT SCH (15:41)
[2021-08-03 03:33] LABS: ABG Base Excess -0.2 MMOL/L (-2.5-2.5); ABG HCO3 24.3 MMOL/L (20-26); ABG Oxygen Saturation 98.2 % (95-100); ABG PCO2 36.3 MM HG (35-48); ABG PH 7.426 (7.35-7.45); ABG TCO2 21.5 MMOL/L (23-27)
[2021-08-03] MEDS: methylPREDNISolone SOD SUC 40 MG/1 ML VIAL IV SCH ×2 (03:48→15:38)
[2021-08-03 04:36] LABS: Hematocrit 33.4 VOL% (42.0-52.0); Hemoglobin 10.9 GM/DL (14.0-18.0); Immature Granulocytes % 0.5 %; Immature Granulocytes Absolute 0.03 #; Lymphocytes # 0.3 10*3/uL (1.4-4.0); Mean Corpuscular HGB Conc 32.6 GM/DL (32-36); Mean Corpuscular Volume 82.5 FL (87-102); Monocytes # 0.3 10*3/uL (0.11-0.8); Monocytes % 5.3 % (1.7-12.7); NRBC # 0.03 10*3/uL; Neutrophils % 89.2 % (38.7-73.9); Platelet Count 141 T/CUMM (130-400); Red Blood Count 4.05 MC/CUMM (3.8-5.5); Red Cell Distribution Width 18.4 % (9.3-17.3); White Blood Count 6.2 T/CUMM (4-12)
[2021-08-03 04:53] LABS: Albumin 2.3 G/DL (3.4-5.0); Bilirubin,Total 0.9 MG/DL (0.20-1.00); Calcium 8.4 MG/DL (8.5-10.1); Osmolality,Calculated 281.8 MOS/KG (273-304); Potassium 4.2 MMOL/L (3.5-5.1); Total Protein 6.7 G/DL (6.4-8.2)
[2021-08-03] MEDS: INSULIN REGULAR 100 UNIT/ML SUBCUT SCH ×3 (05:06→18:09)
[2021-08-03] MEDS: METOCLOPRAMIDE 10 MG/2 ML VIAL IV SCH ×4 (05:10→23:40)
[2021-08-03] MEDS: BACITRACIN OINT 0.9 GM PACK TOP SCH (09:22)
[2021-08-03] MEDS: TAMSULOSIN 0.4 MG CAPSULE PO SCH (09:22)
[2021-08-03] MEDS: PANTOPRAZOLE 40 MG VIAL IV SCH (09:23)
[2021-08-03] MEDS: CEFEPIME 1,000 MG in SODIUM CHLORIDE 0.9% 100 ML IV SCH ×3 (09:23→23:40)
[2021-08-03] MEDS: MENTHOL/ZINC OXIDE OINT 71 GM JAR TOP SCH ×3 (12:58→23:39)
[2021-08-03] MEDS: ENOXAPARIN 30 MG/0.3 ML SYRINGE SUBCUT SCH (15:38)
[2021-08-03] MEDS: LEVOFLOXACIN INJ 750 MG/150 ML PREMIX IV SCH (15:38)
[2021-08-03] MEDS: DOPamine 800 MG/250 ML PREMIX IV PRN (23:52)
[2021-08-04] MEDS: INSULIN REGULAR 100 UNIT/ML SUBCUT SCH ×5 (00:06→23:45)
[2021-08-04] MEDS: methylPREDNISolone SOD SUC 40 MG/1 ML VIAL IV SCH ×3 (03:57→20:46)
[2021-08-04 04:19] LABS: Arterial Base Excess iSTAT -1 MMOL/L (-2.5-2.5); Arterial Bicarbonate iSTAT 23.1 MMOL/L (20-26); Arterial O2 Saturation iSTAT 100 % (95-100); Arterial PCO2 iSTAT 34 MM HG (35-48); Arterial PO2 iSTAT 190 MM HG (80-95); Arterial Total CO2 iSTAT 24 MMO/L (23-27); Arterial pH iSTAT 7.436 (7.35-7.45)
[2021-08-04 04:35] LABS: Hematocrit 34.4 VOL% (42.0-52.0); Immature Granulocytes % 0.4 %; Immature Granulocytes Absolute 0.03 #; Lymphocytes # 0.3 10*3/uL (1.4-4.0); Lymphocytes % 3.9 % (21.2-54.2); Mean Corpuscular Volume 83.9 FL (87-102); Monocytes # 0.4 10*3/uL (0.11-0.8); Monocytes % 5.3 % (1.7-12.7); NRBC # 0.03 10*3/uL; Neutrophils % 90.4 % (38.7-73.9); Platelet Count 147 T/CUMM (130-400); Red Cell Distribution Width 19.7 % (9.3-17.3); White Blood Count 7.2 T/CUMM (4-12)
[2021-08-04 04:45] LABS: Calcium 8.6 MG/DL (8.5-10.1); Osmolality,Calculated 288.7 MOS/KG (273-304); Potassium 4.9 MMOL/L (3.5-5.1)
[2021-08-04 04:58] LABS: Lymphocytes 3 % (20-55); Platelet Estimate Adequate; Total Cells Counted 100
[2021-08-04] MEDS: METOCLOPRAMIDE 10 MG/2 ML VIAL IV SCH ×4 (06:13→23:39)
[2021-08-04] MEDS: CEFEPIME 1,000 MG in SODIUM CHLORIDE 0.9% 100 ML IV SCH ×3 (07:55→23:39)
[2021-08-04] MEDS: PANTOPRAZOLE 40 MG VIAL IV SCH (09:00)
[2021-08-04] MEDS: BACITRACIN OINT 0.9 GM PACK TOP SCH (09:02)
[2021-08-04] MEDS: MENTHOL/ZINC OXIDE OINT 71 GM JAR TOP SCH ×2 (09:02→20:46)
[2021-08-04] MEDS: TAMSULOSIN 0.4 MG CAPSULE PO SCH (09:02)
[2021-08-04 10:49] LABS: Folate 17.52 NG/ML (5.38-24.0)
[2021-08-04] MEDS ORDERED: NOREPINEPHRINE 4 MG/4 ML VIAL IV ONE (11:43)
[2021-08-04] MEDS ORDERED: ALBUMIN 25% 25 GM/100 ML VIAL IV ONE (11:53)
[2021-08-04 13:00] VITALS: BP 101/68
[2021-08-04] MEDS: LEVOFLOXACIN INJ 750 MG/150 ML PREMIX IV SCH (15:06)
[2021-08-04] MEDS: ENOXAPARIN 30 MG/0.3 ML SYRINGE SUBCUT SCH (15:06)
[2021-08-05 03:47] LABS: Hematocrit 30.4 VOL% (42.0-52.0); Hemoglobin 9.7 GM/DL (14.0-18.0); Immature Granulocytes % 0.6 %; Immature Granulocytes Absolute 0.04 #; Lymphocytes # 0.2 10*3/uL (1.4-4.0); Lymphocytes % 2.7 % (21.2-54.2); Mean Corpuscular HGB Conc 31.9 GM/DL (32-36); Mean Corpuscular Volume 84.7 FL (87-102); Monocytes # 0.3 10*3/uL (0.11-0.8); Monocytes % 4.6 % (1.7-12.7); NRBC # 0.06 10*3/uL; Neutrophils % 92.1 % (38.7-73.9); Platelet Count 135 T/CUMM (130-400); Red Blood Count 3.59 MC/CUMM (3.8-5.5); Red Cell Distribution Width 19.8 % (9.3-17.3)
[2021-08-05 03:58] LABS: INR 1.3; PT Patient Result 13.8 SECS (10.5-12.0)
[2021-08-05 03:59] LABS: Calcium 8.7 MG/DL (8.5-10.1); Osmolality,Calculated 293.5 MOS/KG (273-304); Potassium 5.2 MMOL/L (3.5-5.1)
[2021-08-05 04:01] LABS: Arterial Base Excess iSTAT 1 MMOL/L (-2.5-2.5); Arterial Bicarbonate iSTAT 24.3 MMOL/L (20-26); Arterial O2 Saturation iSTAT 100 % (95-100); Arterial PCO2 iSTAT 34 MM HG (35-48); Arterial PO2 iSTAT 204 MM HG (80-95); Arterial Total CO2 iSTAT 25 MMO/L (23-27); Arterial pH iSTAT 7.461 (7.35-7.45)
[2021-08-05 04:07] LABS: Albumin 2.2 G/DL (3.4-5.0); Bilirubin,Direct 0.4 MG/DL (0.0-0.20); Bilirubin,Indirect 0.3 MG/DL (0.0-1.0); Bilirubin,Total 0.7 MG/DL (0.20-1.00)
[2021-08-05 04:10] LABS: Hypochromia 1+; Lymphocytes 4 % (20-55); Nucleated Red Blood Cells 1 (0-5); Total Cells Counted 100
[2021-08-05 04:11] LABS: Anisocytosis 1+; Microcytosis 1+; Target Cells Slight
[2021-08-05 04:12] LABS: Platelet Estimate Adequate
[2021-08-05] MEDS ORDERED: SODIUM PHOSPHATE INJ 16.2 MMOL in SODIUM CHLORIDE 0.9% 250 ML IV ONE (04:54)
[2021-08-05] MEDS ORDERED: SODIUM ZIRCONIUM CYCLOSILICATE 10 GM PACK PO ONE (04:57)
[2021-08-05] MEDS: METOCLOPRAMIDE 10 MG/2 ML VIAL IV SCH ×2 (05:32→11:46)
[2021-08-05] MEDS: INSULIN REGULAR 100 UNIT/ML SUBCUT SCH ×2 (05:32→11:45)
[2021-08-05] MEDS: MIDAZOLAM 100 MG in SODIUM CHLORIDE 0.9% 80 ML IV PRN (06:17)
[2021-08-05] MEDS: methylPREDNISolone SOD SUC 40 MG/1 ML VIAL IV SCH (07:54)
[2021-08-05] MEDS: BACITRACIN OINT 0.9 GM PACK TOP SCH (07:59)
[2021-08-05] MEDS: MENTHOL/ZINC OXIDE OINT 71 GM JAR TOP SCH (07:59)
[2021-08-05] MEDS: TAMSULOSIN 0.4 MG CAPSULE PO SCH (08:00)
[2021-08-05] MEDS: PANTOPRAZOLE 40 MG VIAL IV SCH (08:00)
[2021-08-05] MEDS ORDERED: DEXMEDETOMIDINE 200 MCG in SODIUM CHLORIDE 0.9% 48 ML IV PRN (09:00)
[2021-08-07 14:27] LABS: M. Tuberculosis PCR Result Negative (Negative)
[2021-08-07 14:28] LABS: M. Tuberculosis PCR Result Negative (Negative); M. Tuberculosis PCR Source BRONCH WASH
== END 2021-08-05 14:25 | DRG 207 ==
LOC: EDUNIT# → N.ED 13:23 → SUATTDRO 17:43 → N.EDINP 17:43 → N.3E 07-22 14:41 → N.CC 07-31 09:55
PROVIDERS: ADMIT Emergency Medicine; ATTEND Family Medicine
PROC: EGDWPEG (ICD-10-PCS; 2021-07-29 10:05)